=== PATIENT | male | born 1945 | race Caucasian/White ===

== ENCOUNTER 2016-09-25 07:53 | Emergency (ER) | payer OTHER ==
--- NOTE | 2016-09-25 08:09 | CPEKG ---
Heart Rate: 140 RR Interval: 429 QRSD Interval: 80 QT Interval: 296 QTC Interval: 452 QRS Bath: 24 T Wave Bath: 139 EKG Severity - ABNORMAL ECG - EKG Impression: ATRIAL FIBRILLATION, V-RATE 93-170 EKG Impression: VENTRICULAR PREMATURE COMPLEX EKG Impression: NONSPECIFIC T ABNORMALITIES, LATERAL LEADS Electronically Signed By: Elkin Mclean 25-Sep-2016 15:51:41
[2016-09-25] MEDS ORDERED: DILTIAZEM 25 MG/5 ML VIAL IVP ONE ×3 (08:33→09:08)
--- NOTE | 2016-09-25 08:35 | EDPHY ---
HPI/HX/ROS/PE/MDM Narrative: Chief complaint: Shortness of breath HPI: 71-year-old male who knows he has a history of atrial fibrillation but does not take any medications for it presenting complaining of 3 days of increasing shortness of breath which he is convinced is caused by a process going on in his lungs. He denies any fevers or chills. Has had recent sinus infection for which he took amoxicillin. Patient states that his sinus infection has cleared over the last the last 3 days he has been feeling increasingly shortness of breath with dyspnea on exertion. He has not had any chest pain. No fevers or chills. No nausea or vomiting. Patient knows he has a long history of atrial fibrillation and hypertension but has chosen not to take any medications for this. He states he has never had any problems with this. He has never seen a elementary tutor. Has not seen a primary care physician in quite some time as is retired He does not want to be admitted to the hospital. Does not want to be started on any cardiac medications. He is here today to see if there has been any long-standing lung damage or lung process which is causing him to feel shortness of breath. ROS: 10 point Review of Systems is negative except as noted in the HPI. Physical exam: Gen: Awake, Alert, No Distress HEENT: Nose: no rhinorrhea Eyes: PERRLA, EOMI Mouth: Moist mucosa Neck: Supple, no JVD Chest: nontender, lungs clear to auscultation Heart: Irregularly irregular, tachycardic from 120 to 170s. Heart toes difficult to auscultate given the patient's rate Abd: Soft, non-tender, no guarding Back: no CVA tenderness, no midline tenderness Ext: no edema, non-tender Skin: no rash Neuro: CN II-XII intact, Sensation grossly intact, Strength 5/5 in bilateral upper and lower extremities ED Course: EC atrial fibrillation with a rate of 140. Is regularly irregular. Nonspecific lateral T-wave abnormalities. Chest x-ray: No acute infiltrate This is a 71-year-old male with AF and RVR which is likely contributing to his symptoms. His lungs are clear on auscultation. Chest x-ray shows no acute failure or infiltrate at this time. Initially he refused medications or treatment leaving that his symptoms were purely from a respiratory cause. After extensive discussion with him regarding his atrial fibrillation he has agreed to initial tests here with a is dose of diltiazem. Does not want to be on a drip. Does not want to be admitted to the hospital. Chest x-ray is noted with no acute infiltrate or failure. Troponin is noted to be mildly elevated. He has received 10 mg of diltiazem his heart rate is 90. He remains in AF. I had a long conversation about the risks of being in atrial fibrillation including the risk of clot formation and possible stroke. Patient is now going to stay in the hospital for further evaluation. Case discussed with Dr. Borja, hospitalist. Will admit to Dr. maggie valdivia to the PCU for further care. Patient has been seen by a case management and by a hospital being loan representative. He is now refusing to stay in the hospital for further evaluation. I have explained to him at length that his atrial fibrillation left untreated can cause him to have significant consequences including stroke, heart failure, loss of current lifestyle and . Patient states he understands. He does not feel further evaluation treatment are necessary. I have given him a prescription for metoprolol 25 mg twice a day encouraged to follow up with Cardiology as an outpatient. - Data Points Laboratory Results: Laboratory Results 09/25/16 08:17 09/25/16 08:17 09/25/16 08:17 WBC 10.28 H 10^3/uL (3.80-9.50) RBC 5.53 10^6/uL (4.40-6.38) Hgb 15.8 g/dL (13.7-17.5) Hct 47.0 % (40.0-51.0) MCV 85.0 fL (81.5-99.8) MCH 28.6 pg (27.9-34.1) MCHC 33.6 g/dL (32.4-36.7) RDW 14.5 % (11.5-15.2) Plt Count 278 10^3/uL (150-400) MPV 9.5 fL (8.7-11.7) Neut % (Auto) 62.3 % (39.3-74.2) Lymph % (Auto) 22.7 % (15.0-45.0) Schuyler % (Auto) 11.2 % (4.5-13.0) Eos % (Auto) 2.7 % (0.6-7.6) Baso % (Auto) 0.8 % (0.3-1.7) Nucleat RBC Rel Count 0.0 % (0.0-0.2) Absolute Neuts (auto) 6.41 10^3/uL (1.70-6.50) Absolute Lymphs (auto) 2.33 10^3/uL (1.00-3.00) Absolute Monos (auto) 1.15 H 10^3/uL (0.30-0.80) Absolute Eos (auto) 0.28 10^3/uL (0.03-0.40) Absolute Basos (auto) 0.08 10^3/uL (0.02-0.10) Absolute Nucleated RBC 0.00 10^3/uL (0-0.01) Immature Gran % 0.3 % (0.0-1.1) Immature Gran # 0.03 10^3/uL (0.00-0.10) Sodium 142 mEq/L (134-144) Potassium 3.8 mEq/L (3.5-5.2) Chloride 106 mEq/L (97-110) Carbon Dioxide 22 mEq/l (22-31) Anion Gap 14 mEq/L (8-16) BUN 21 mg/dL (7-23) Creatinine 0.9 mg/dL (0.7-1.3) Estimated GFR > 60 Glucose 143 H mg/dL (70-100) Calcium 9.2 mg/dL (8.5-10.4) Troponin I 0.043 H ng/mL (0-0.034) Medications Given: Discontinued Medications Diltiazem HCl (Cardizem 25 Mg/5 Ml Vial) 5 mg IVP EDNOW ONE Stop: 09/25/16 08:36 Last Admin: 09/25/16 08:58 Dose: 5 mg Diltiazem HCl (Cardizem 25 Mg/5 Ml Vial) 5 mg IVP EDNOW ONE Stop: 09/25/16 09:09 Last Admin: 09/25/16 09:05 Dose: 5 mg Diltiazem HCl 125 mg/ Dextrose 150 mls @ 0 mls/hr IV EDNOW ONE; As Directed PRN Reason: Protocol Stop: 09/25/16 09:12 Last Admin: 09/25/16 09:41 Dose: 150 mls Diltiazem HCl 125 mg/ Dextrose 125 mls @ 0 mls/hr IV EDNOW ONE; As Directed PRN Reason: Protocol Stop: 09/25/16 09:31 Last Admin: 09/25/16 09:42 Dose: Not Given General Time Seen by Provider: 09/25/16 08:09 Initial Vital Signs: Initial Vital Signs Temperature (C) 36.3 C 09/25/16 07:55 Heart Rate 137 H 09/25/16 07:55 Respiratory Rate 16 09/25/16 07:55 Blood Pressure 191/121 H 09/25/16 07:55 O2 Sat (%) 91 L 09/25/16 07:55 O2 Delivery Mode Room Air O2 (L/minute) 2 Allergies/Adverse Reactions: No Known Allergies Allergy (Unverified 09/25/16 08:02) Home Medications: Medication Instructions Recorded Herbals/Supplements -Info Only 1 ea PO DAILY 09/25/16 Departure - Departure Disposition: Against Medical Advice Clinical Impression: Atrial fibrillation Condition: Fair Instructions: Atrial Fibrillation (ED), Hypertension (ED) Additional Instructions: JACOBY WE HAVE MADE YOU AN APPOINTMENT AT [facility] ON FridaySEPTEMBER 25 AT 1045AM. THE ADDRESS IS [address] [place] [address] IN [place]. THE PHONE NUMBER IS . Referrals: IN STATE,. [Primary Care Provider] - As per Instructions Cheryl Hutchison MD [Medical Doctor] - As per Instructions
[2016-09-25 08:38] LABS: % IMMATURE GRANULYOCYTES 0.3 % (0.0-1.1); ABSOLUTE IMMATURE GRANULOCYTES 0.03 10^3/uL (0.00-0.10); ADD DIFF? NO; ADD MORPH? NO; ADD SCAN? NO; ATYPICAL LYMPHOCYTE FLAG 0 (0-99); FRAGMENT RBC FLAG 0 (0-99); HEMOGLOBIN 15.8 g/dL (13.7-17.5); LEFT SHIFT FLG 0 (0-99); LIPEMIA HEMOLYSIS FLAG 80 (0-99); MEAN CELL HEMOGLOBIN 28.6 pg (27.9-34.1); MEAN CELL HEMOGLOBIN CONCENTR. 33.6 g/dL (32.4-36.7); MEAN PLATELET VOLUME 9.5 fL (8.7-11.7); PLATELET CLUMPS FLAG 10 (0-99); PLATELET COUNT 278 10^3/uL (150-400); RED BLOOD CELL COUNT 5.53 10^6/uL (4.40-6.38); RED CELL DISTRIBUTION WIDTH 14.5 % (11.5-15.2)
[2016-09-25 08:45] LABS: ANION GAP 14 mEq/L (8-16); CALCIUM 9.2 mg/dL (8.5-10.4); CARBON DIOXIDE 22 mEq/l (22-31); CHLORIDE 106 mEq/L (97-110); CREATININE 0.9 mg/dL (0.7-1.3); GLOMERULAR FILTRATION RATE > 60; GLUCOSE 143 mg/dL (70-100); POTASSIUM 3.8 mEq/L (3.5-5.2); SODIUM 142 mEq/L (134-144)
[2016-09-25 08:57] LABS: TROPONIN I 0.043 ng/mL (0-0.034)
[2016-09-25] MEDS ORDERED: DILTIAZEM 125 MG in D5W 125 ML IV ONE (09:11)
[2016-09-25] MEDS ORDERED: DILTIAZEM 125 MG in D5W 100 ML IV ONE (09:30)
--- NOTE | 2016-09-25 09:50 | DX ---
PA and Lateral Chest Clinical Indications: Shortness of breath in a 71-year-old male; no previous studies are available f or comparison. Findings: No focal pulmonary consolidation is identified. Peribronchial thickening is noted and basil ar opacities bilaterally are consistent with atelectasis or scarring. There is hyperexpansion seen wi th flattening of the hemidiaphragms noted. The heart size is at the upper limits of normal.. Pleural surfaces and bony thorax are negative for acute abnormality. Degenerative changes are seen in the spi ne. Impression: 1. Query COPD/chronic bronchitis. 2. Borderline cardiac enlargement without pulmonary edema.
[2016-09-25 10:53] VITALS: BP 165/98; PULSE 98; RESP 20; O2SAT 95
--- NOTE | 2016-09-25 11:49 | SOAPPROG ---
SOAP Progress Note Assessment/Plan: Pt was seen in the E.D. as the initial plan was to admit the patient for mgmt of afib with RVR and indeterminate troponin. Labs/record was reviewed. Unfortunately, he is refusing hospitalization. He has capacity to make this decision. He is open to trying outpatient medications and f[facility]. Discussed refusal with the ED attending who will discharge him. 09/25/16 11:46 Objective: Vital Signs Temp Pulse Resp BP Pulse Ox 36.3 C 98 20 165/98 H 95 09/25/16 07:55 09/25/16 10:48 09/25/16 10:48 09/25/16 10:48 09/25/16 10:48 ICD10 Worksheet Patient Problems: Problems Problem Status Diagnosed Atrial fibrillation Acute
[2016-09-25 12:24] VITALS: TEMP 97.7
== END 2016-09-25 12:24 | disposition left against medical advice (07) ==
LOC: UNDOADMIN 10:00
DX: I48.91 Unspecified atrial fibrillation (principal)
CPT/HCPCS: 96374

== ENCOUNTER 2017-04-06 00:04 | Emergency (ER) | payer OTHER ==
[2017-04-06 00:16] VITALS: RESP 18; TEMP 98.8
[2017-04-06] MEDS ORDERED: TDAP ADULT 0.5 ML INJ (BOOSTRIX) IM ONE (00:28)
--- NOTE | 2017-04-06 00:31 | EDPHY ---
H & P Time Seen by Provider: 04/06/17 00:20 HPI/ROS: CHIEF COMPLAINT: Left hand laceration HISTORY OF PRESENT ILLNESS: 71-year-old male with out-of-date tetanus states that 12 hours ago he was using a drill press when the material caught and he sustained a laceration to his left thenar eminence. Due to financial reasons he did not come to the emergency department. He has been keeping it tightly wrapped and placed a latex glove and duct tape to the glove around his hand for the past 12 hours however is continued bleeding inside the glove. He denies paresthesia or sensory deficit. Denies motor deficit. PHYSICAL EXAM (Prior to examination, patient consented to physical exam, hands were washed and my usual and customary physical exam procedures followed) 1) GENERAL: Well-developed, well-nourished, alert and oriented. Appears to be in no acute distress. 2) HEAD: Normocephalic 3) HEENT: sclera anicteric 4) LUNGS: Breathing comfortably. 5) SKIN: on the patient's left hand he has a latex glove which is duct tape at the base. the glove his filled with blood. This is removed revealing a tightly Coban wrapped dressing with the patient's fingers dusky distally. Upon removal of the dressing the fingers progressively become more pink in color. 6) MUSCULOSKELETAL: patient has a 5 cm laceration to the left thenar eminence 7) NEUROLOGIC: he has full sensation distally Smoking Status: Former smoker Constitutional: Initial Vital Signs Temperature (C) 37.1 C 04/06/17 00:11 Heart Rate 70 04/06/17 00:11 Respiratory Rate 18 04/06/17 00:11 Blood Pressure 215/123 H 04/06/17 00:11 O2 Sat (%) 92 04/06/17 00:11 O2 Delivery Mode Room Air Allergies/Adverse Reactions: No Known Allergies Allergy (Verified 04/06/17 00:16) Home Medications: Medication Instructions Recorded Herbals/Supplements -Info Only 1 ea PO DAILY 09/25/16 Cephalexin [Keflex] 500 mg PO QID 5 Days 04/06/17 Coumadin 04/06/17 Hydrochlorothiazide 04/06/17 Metoprolol Succinate 04/06/17 MDM/Departure - MDM Procedures: Procedure: Laceration repair. I explained the indications, risks and benefits for both laceration repair and anesthetic administration. Verbal consent was obtained from the patient . The laceration on the left thenar eminence was anesthetized using 0.5% bupivicaine with epinephrine . After anesthetic administered the patient was observed for a period of time and had no apparent adverse effects. The wound was cleaned, prepped, draped in normal sterile fashion and explored to its base. No foreign body seen, no foreign bodies palpated. There is a partial laceration to the underlying muscle belly No tendon injury was identified. The wound was repaired with 11 simple interrupted 5 O Prolene suture. The wound repair was complex. The procedure was performed by myself. Patient has been informed that scarring will occur, although efforts have been made to minimize this. Procedure: Splint A Velcro thumb spica splint was applied by ER waste minimization technician. After application of the splint I returned and re-examined the patient. The splint was adequately immobilizing the joint and distal to the splint the patient's circulation and sensation were intact. Patient shows no signs of compartment syndrome. Was given orthopedic precautions. Medications Given: Discontinued Medications Diphtheria/Tetanus/Acell Pertussis (Boostrix) 0.5 ml IM .ONCE ONE Stop: 04/06/17 00:29 Last Admin: 04/06/17 00:34 Dose: 0.5 ml ED Course/Re-evaluation: Recommended this patient follow up with Hand surgery as he is noted to have a partial laceration of the underlying muscle belly of the thenar eminence. Because of his delay in seeking medical attention has been informed that this may cause long-term complications with healing and functionality. He is started on prophylactic Keflex, given on-call hand surgery follow-up information. He feels comfortable being discharged. Usual and customary discharge precautions and instructions provided. - Depart Disposition: Home, Routine, Self-Care Clinical Impression: Laceration of left hand Qualifiers: Encounter type: initial encounter Foreign body presence: without foreign body Qualified Code(s): S61.412A - Laceration without foreign body of left hand, initial encounter Condition: Good Instructions: Laceration (ED), Care For Your Stitches (ED), Cephalexin (By mouth) Additional Instructions: Return to the ER if you develop redness, swelling, discharge, warmth to the wound, red streaks going up your arm , or any other symptoms that concern you. Recommend he follow up with a hand surgeon as you have partially lacerated the muscle. Prescriptions: Cephalexin [Keflex] 500 mg PO QID 5 Days Referrals: Amari Stubbs MD [Medical Doctor] - 2-3 days, call for appt.
[2017-04-06] MEDS ORDERED: CEPHALEXIN 500MG PREPACK#4 BTL TAKEHOME ONE (01:21)
[2017-04-06 01:55] VITALS: BP 184/102; PULSE 98; O2SAT 93
== END 2017-04-06 01:54 | disposition home or self-care (01) ==
PROC: 2W3FX1Z Immobilization of Left Hand using Splint (ICD-10-PCS; principal; 2017-04-06)
PROC: 0KQD0ZZ Repair Left Hand Muscle, Open Approach (ICD-10-PCS; principal; 2017-04-06)
DX: S61.412A Laceration without foreign body of left hand, initial encounter (principal); Z87.891 Personal history of nicotine dependence; W23.1XXA Caught, crushed, jammed, or pinched between stationary objects, initial encounter; Z23 Encounter for immunization
CPT/HCPCS: L3807